=== PATIENT | male | born 1975 | race Caucasian/White ===

== ENCOUNTER → 2017-02-02 | Outpatient (REF) | payer SELFPAY | LOC: M LAB REF 08:59 | PROVIDERS: ATTEND Surgery | DX: Z30.2 Encounter for sterilization (principal) ==

== ENCOUNTER → 2017-04-07 | Outpatient (REF) | payer SELFPAY ==
[2017-04-07 10:55] LABS: IMMMOTILE SPERM CENTRIFUGED ABSENT (ABSENT); IMMOTILE SPERM ABSENT (ABSENT); MOTILE SPERM ABSENT (ABSENT); MOTILE SPERM CENTRIFUGED ABSENT (ABSENT)
== END ==
LOC: M LAB REF 09:20
PROVIDERS: ATTEND Surgery
DX: Z30.2 Encounter for sterilization (principal)